=== PATIENT | male | born 1970 | race Caucasian/White ===

== ENCOUNTER 2017-08-25 19:39 | Emergency (ER) | payer OTHER ==
[~2017-08-25] VITALS: Ht 182.9 cm; Wt 67.2 kg
[~2017-08-25 19:39] MED LIST: ABILIFY10 MG PO; AUGMENTIN875 MG PO; BACTRIM,SEPT1 TABLET PO; Combivent IH; DARVOCET-N 1001 EAC1 PO; KEFLEX500 MG PO; LEXAPRO10 MG PO; LEXAPRO20 MG PO; METHADONE5 MG PO; MOTRIN800 MG PO; NORCO 5/3251 TABLET PO; OXYCODONE HCL5 MG PO; PROAIR HFA8.5 GM IH; SOMA350 MG PO; TRAZODONE HCL50 MG PO
[2017-08-25 23:23] VITALS: BP 187/98
== END 2017-08-25 23:24 | disposition home or self-care (01) ==
LOC: EME 19:39
DX: F19.10 Other psychoactive substance abuse, uncomplicated (principal); S60.811A Abrasion of right wrist, initial encounter; S80.811A Abrasion, right lower leg, initial encounter; X58.XXXA Exposure to other specified factors, initial encounter; Y93.89 Activity, other specified; J44.9 Chronic obstructive pulmonary disease, unspecified; F41.9 Anxiety disorder, unspecified; F32.9 Major depressive disorder, single episode, unspecified; F17.200 Nicotine dependence, unspecified, uncomplicated; Z88.8 Allergy status to other drugs, medicaments and biological substances
CPT/HCPCS: 71045; 73110; 99281; 99284; J2250